=== PATIENT | male | born 1950 | race Caucasian/White ===

== ENCOUNTER → 2017-08-28 | Outpatient (CLI) | payer MEDICARE, BC ==
--- NOTE | 2017-08-28 13:46 | CT ---
EXAMINATION TYPE: CT brain wo con DATE OF EXAM: 08/28/2017 COMPARISON: NONE HISTORY: Patient complains of headache after hitting head on garage door [address] DLP: 785.7 mGycm. Automated Exposure Control for Dose Reduction was Utilized. TECHNIQUE: CT scan of the head is performed without contrast. FINDINGS: There is no acute intracranial hemorrhage, mass effect, or midline shift identified. The ventricles and sulci are within normal limits in size. The globes are intact and the visualized sin uses are clear. Dystrophic calcification is seen of the left basal ganglia. No suspicious extra axial fluid collection is identified. IMPRESSION: No acute intracranial hemorrhage, mass effect, or midline shift is seen. No acute intrac ranial process.
== END | disposition home or self-care (01) ==
LOC: RADCTMAIN 13:09
PROVIDERS: ATTEND Internal Medicine Geriatric Medicine
DX: G44.301 Post-traumatic headache, unspecified, intractable (principal)
CPT/HCPCS: 70450

== ENCOUNTER 2020-04-29 11:04 | Emergency (ER) | payer MEDICARE ==
--- NOTE | 2020-04-29 15:11 | US ---
EXAMINATION TYPE: US venous doppler duplex UE RT DATE OF EXAM: 04/29/2020 COMPARISON: NONE CLINICAL HISTORY: Right arm pain. SIDE PERFORMED: Right Right Arm: Negative for DVT IMPRESSION: 1. Right upper extremity deep venous ultrasound negative for deep venous thrombosis.
== END 2020-04-29 13:30 | disposition home or self-care (01) ==
LOC: EC 11:04
DX: G56.31 Lesion of radial nerve, right upper limb (principal); Z88.0 Allergy status to penicillin; Z91.041 Radiographic dye allergy status; Z96.653 Presence of artificial knee joint, bilateral
CPT/HCPCS: 96372; 99283